=== PATIENT | female | born 1970 | race American Indian/Alaskan Native ===

== ENCOUNTER 2022-02-15 01:34 | Emergency (ER) | payer OTHER ==
[2022-02-15 02:26] LABS: Basophils # (Auto) 0.1 K/mm3 (0.0-0.1); Basophils % (Auto) 0.5 % (0.0-1.8); Eosinophils # (Auto) 0.1 K/mm3 (0.0-0.4); Eosinophils % (Auto) 0.4 % (0.0-4.3); Hematocrit 38.4 % (30.3-42.9); Hemoglobin 12.2 gm/dl (10.1-14.3); Lymphocytes % (Auto) 15.6 % (13.4-35.0); Mean Corpuscular HGB Conc 32 % (30-34); Mean Corpuscular Volume 86 fl (79-97); Monocytes # (Auto) 1.2 K/mm3 (0.0-0.8); Monocytes % (Auto) 9.3 % (0.0-7.3); Platelet Count 296 K/mm3 (140-440); Red Blood Count 4.46 M/mm3 (3.65-5.03); Red Cell Distribution Width 13.8 % (13.2-15.2)
[2022-02-15 02:43] LABS: Alanine Aminotransferase 8 units/L (7-56); Albumin 4.4 g/dL (3.9-5); BUN/Creatinine Ratio 16; Blood Urea Nitrogen 13 mg/dL (7-17); Calcium 9.7 mg/dL (8.4-10.2); Hemolysis Index 1
[2022-02-15 02:55] LABS: Bilirubin,Urine NEG (Negative); Blood,Urine MOD (Negative); Color,Urine Yellow (Yellow); Urobilinogen,Urine < 2 mg/dL (<2.0)
[2022-02-15 02:58] LABS: Bacteria,Urine 4+ /HPF (Negative); Mucus,Urine FEW /HPF; WBC,Urine > 182.0 /HPF (0.0-6.0)
[2022-02-15] MEDS ORDERED: KETOROLAC 30 MG/1 ML INJ IV ONE (07:55)
[2022-02-15] MEDS ORDERED: ONDANSETRON 4 MG/2 ML INJ IV ONE (07:55)
[2022-02-15] MEDS ORDERED: MORPHINE 4 MG/1 ML INJ IV ONE (07:55)
[2022-02-15] MEDS ORDERED: cefTRIAXone/NS 1 GM/50 ML 1 GM/50 ML BAG IV ONE (07:55)
--- NOTE | 2022-02-15 08:55 | Cat Scan Report ---
CT ABDOMEN AND PELVIS WITHOUT CONTRAST INDICATION / CLINICAL INFORMATION: right flank pain. TECHNIQUE: Axial CT images were obtained through the abdomen and pelvis without IV contrast. All CT scans at this location are performed using CT dose reduction for ALARA by means of automated exposure control. COMPARISON: None available. FINDINGS: LOWER CHEST: Lung bases are clear. LIVER: No significant abnormality GALLBLADDER/BILIARY TREE: Cholecystectomy. PANCREAS: No significant abnormality SPLEEN: No significant abnormality ADRENALS: No significant abnormality RIGHT KIDNEY / URETER: 7 mm right UPJ stone with mild right hydronephrosis and perinephric and periur eteral stranding. Additional 2 mm stone in the lower pole calyx. LEFT KIDNEY / URETER: No significant abnormality. No renal or ureteral stone or hydronephrosis. URINARY BLADDER: No significant abnormality REPRODUCTIVE ORGANS: Calcified uterine fibroid disease. STOMACH / BOWEL: Moderate hiatal hernia. Small bowel is normal in caliber. Mild colonic diverticulosi s without diverticulitis. Moderate stool in the proximal colon. No evidence of localized bowel inflam mation. The appendix is normal in caliber. LYMPH NODES: No significant adenopathy. VASCULATURE: No significant abnormality. OTHER: No free air, free fluid, or focal fluid collection is identified. SKELETAL SYSTEM: No acute osseous findings. IMPRESSION: 1. 7 mm stone at the right UPJ with mild hydronephrosis with perinephric/periureteral stranding, cons istent with obstructive uropathy. 2. Additional 2 mm nonobstructive right renal stone. 3. Moderate hiatal hernia and other chronic and incidental findings as above. Signer Name: Eleazar Dee MD Signed: 02/15/2022 8:50 AM Workstation Name: [email or web address]
[2022-02-15] MEDS ORDERED: SODIUM CHLORIDE 0.9% 1000 ML 1,000 ML IV ONE (09:00)
--- NOTE | 2022-02-15 11:07 | Emergency Department Report ---
ED Abdominal Pain HPI - General Chief Complaint: Abdominal Pain Stated Complaint: BILATERAL FLANK PAIN/SOB Time Seen by Provider: 02/15/22 07:06 Source: patient Mode of arrival: Ambulatory Limitations: No Limitations - History of Present Illness MD Complaint: flank pain -: Sudden, days(s) (3) Location: R flank Radiation: RLQ Migration to: no migration Severity scale (0 -10): 10 Quality: aching Consistency: intermittent Associated Symptoms: nausea, vomiting, fever, chills. denies: diarrhea, dysuria, hematemesis, hematochezia, melena, hematuria, anorexia, syncope - Related Data LMP (females 10-50): other (Postmenopausal) Previous Rx's Medication Instructions Recorded Last Taken Type Acetaminophen/Codeine [Tylenol 1 tab PO Q6H PRN #12 tab 02/15/22 Unknown Rx /Codeine # 3 tab] Ketorolac [Toradol] 10 mg PO Q6H PRN #12 tab 02/15/22 Unknown Rx Ondansetron [Zofran Odt] 4 mg PO Q8HR PRN #12 tab.rapdis 02/15/22 Unknown Rx Sulfamethoxazole/Trimethoprim 1 each PO BID 7 Days #14 tab 02/15/22 Unknown Rx [Bactrim DS TAB] Tamsulosin [Flomax] 0.4 mg PO QPM #30 cap 02/15/22 Unknown Rx Allergies Allergy/AdvReac Type Severity Reaction Status Date / Time No Known Allergies Allergy Verified 02/15/22 01:44 ED Review of Systems ROS: Stated complaint: BILATERAL FLANK PAIN/SOB Other details as noted in HPI Comment: All other systems reviewed and negative Constitutional: chills, fever. denies: malaise, weakness Respiratory: denies: cough, orthopnea, shortness of breath, SOB with exertion, SOB at rest, wheezing Cardiovascular: denies: chest pain, palpitations Gastrointestinal: abdominal pain, nausea, vomiting. denies: diarrhea, hematemesis, melena, hematochezia Musculoskeletal: back pain Neurological: denies: headache, weakness ED Past Medical Hx - Past Medical History Previous Medical History?: Yes - Surgical History Past Surgical History?: No - Social History Smoking Status: Unknown if ever smoked - Medications Home Medications: Home Medications Medication Instructions Recorded Confirmed Last Taken Type Acetaminophen/Codeine [Tylenol 1 tab PO Q6H PRN #12 tab 02/15/22 Unknown Rx /Codeine # 3 tab] Ketorolac [Toradol] 10 mg PO Q6H PRN #12 tab 02/15/22 Unknown Rx Ondansetron [Zofran Odt] 4 mg PO Q8HR PRN #12 tab.rapdis 02/15/22 Unknown Rx Sulfamethoxazole/Trimethoprim 1 each PO BID 7 Days #14 tab 02/15/22 Unknown Rx [Bactrim DS TAB] Tamsulosin [Flomax] 0.4 mg PO QPM #30 cap 02/15/22 Unknown Rx ED Physical Exam - General Limitations: No Limitations General appearance: alert, in no apparent distress - Head Head exam: Present: atraumatic, normocephalic - Eye Eye exam: Present: normal appearance. Absent: conjunctival injection - Neck Neck exam: Present: normal inspection. Absent: tenderness, full ROM, lymphadenopathy - Respiratory Respiratory exam: Present: normal lung sounds bilaterally. Absent: respiratory distress, wheezes, rales, rhonchi, stridor, chest wall tenderness - Cardiovascular Cardiovascular Exam: Present: regular rate, normal heart sounds - GI/Abdominal GI/Abdominal exam: Present: soft, tenderness (Right lower quadrant), normal bowel sounds. Absent: distended, guarding, rebound, rigid - Extremities Exam Extremities exam: Present: normal inspection, normal capillary refill - Back Exam Back exam: Present: normal inspection, full ROM, CVA tenderness (R). Absent: CVA tenderness (L), vertebral tenderness - Neurological Exam Neurological exam: Present: alert, oriented X3 - Psychiatric Psychiatric exam: Present: normal affect, normal mood - Skin Skin exam: Present: warm, dry, intact, normal color ED Course Vital Signs 02/15/22 01:40 Temperature 99.9 F H Pulse Rate 96 H Respiratory 18 Rate Blood Pressure 145/80 O2 Sat by Pulse 98 Oximetry ED Medical Decision Making - Lab Data Result diagrams: 02/15/22 01:52 02/15/22 01:52 - Radiology Data Radiology results: report reviewed, image reviewed CT abdomen and pelvis without contrast: FINDINGS: LOWER CHEST: Lung bases are clear. LIVER: No significant abnormality GALLBLADDER/BILIARY TREE: Cholecystectomy. PANCREAS: No significant abnormality SPLEEN: No significant abnormality ADRENALS: No significant abnormality RIGHT KIDNEY / URETER: 7 mm right UPJ stone with mild right hydronephrosis and perinephric and periureteral stranding. Additional 2 mm stone in the lower pole calyx. LEFT KIDNEY / URETER: No significant abnormality. No renal or ureteral stone or hydronephrosis. URINARY BLADDER: No significant abnormality REPRODUCTIVE ORGANS: Calcified uterine fibroid disease. STOMACH / BOWEL: Moderate hiatal hernia. Small bowel is normal in caliber. Mild colonic diverticulosis without diverticulitis. Moderate stool in the proximal colon. No evidence of localized bowel inflammation. The appendix is normal in caliber. LYMPH NODES: No significant adenopathy. VASCULATURE: No significant abnormality. OTHER: No free air, free fluid, or focal fluid collection is identified. SKELETAL SYSTEM: No acute osseous findings. IMPRESSION: 1. 7 mm stone at the right UPJ with mild hydronephrosis with perinephric/periureteral stranding, consistent with obstructive uropathy. 2. Additional 2 mm nonobstructive right renal stone. 3. Moderate hiatal hernia and other chronic and incidental findings as above. Critical care attestation.: If time is entered above; I have spent that time in minutes in the direct care of this critically ill patient, excluding procedure time. ED Disposition Clinical Impression: Kidney stones Disposition: 01 HOME / SELF CARE / HOMELESS Is pt being admited?: No Does the pt Need Aspirin: No Condition: Stable Instructions: Abdominal Pain (ED), Kidney Stones, [id number], Renal Colic, [id number], Dietary Guidelines to Help Prevent Kidney Stones Additional Instructions: Take medications as prescribed. Increase intake of non caffienated fluids. Follow up with urology for further evaluation and management. Return to emergency department as needed. Prescriptions: Sulfamethoxazole/Trimethoprim [Bactrim DS TAB] 1 each PO BID 7 Days #14 tab Tamsulosin [Flomax] 0.4 mg PO QPM #30 cap Ketorolac [Toradol] 10 mg PO Q6H PRN #12 tab PRN Reason: Pain Acetaminophen/Codeine [Tylenol /Codeine # 3 tab] 1 tab PO Q6H PRN #12 tab PRN Reason: Pain, Moderate (4-6) Ondansetron [Zofran Odt] 4 mg PO Q8HR PRN #12 tab.rapdis PRN Reason: Nausea And Vomiting Referrals: ALIVIA DURBIN MD [Primary Care Provider] - 3-5 Days ISELA ORTIZ MD [Staff Physician] - 3-5 Days Forms: Work/School Release Form(ED) Time of Disposition: 11:18
[2022-02-15 11:38] VITALS: BP 124/88
== END 2022-02-15 11:38 | disposition home or self-care (01) ==
LOC: ED 01:34
DX: N20.0 Calculus of kidney (principal); Z98.890 Other specified postprocedural states; Z79.899 Other long term (current) drug therapy
CPT/HCPCS: 36415; 74176; 80053; 81001; 85025; 96365; 96375; 99284; J0696; J1885; J2270; J2405